=== PATIENT | male | born 1985 | race Caucasian/White ===

== ENCOUNTER 2024-01-22 20:22 | Emergency (ER) | payer MEDICAID ==
[~2024-01-22] VITALS: Ht 172.7 cm; Wt 72.6 kg
[2024-01-22] MEDS ORDERED: TRIMETHOPRIM/SULFAMETHOXAZOLE 1 EA HOME.PACK PO ONE (21:15)
[2024-01-22] MEDS ORDERED: BACTRIM DS TAB1 EACH PO (21:16)
[2024-01-22 21:41] VITALS: BP 150/102
== END 2024-01-22 21:37 | disposition home or self-care (01) ==
LOC: ED 20:22
DX: L02.416 Cutaneous abscess of left lower limb (principal); Z88.0 Allergy status to penicillin
CPT/HCPCS: 99282; A9270